=== PATIENT | male | born 1965 | race Caucasian/White ===

== ENCOUNTER 2018-02-18 07:57 | Emergency (ER) | payer BC ==
[2018-02-18] MEDS ORDERED: Adacel (T-DAP) 0.5 ML VIAL ONE (08:57)
[2018-02-18] MEDS ORDERED: Lidocaine 1% w/Epinephrine 1:100K 20 ML VIAL ONE (08:57)
[2018-02-18] MEDS ORDERED: Amoxicillin/Potassium Clav 875 MG TAB ONE (08:57)
--- NOTE | 2018-02-18 10:26 | RAD ---
TWO VIEWS OF THE RIGHT FOREARM: COMPARISON: None. HISTORY: Dog bite to right forearm with pain. FINDINGS: Two views of the right forearm show no evidence of acute fracture or dislocation. There is a lacerat ion in the distal aspect of the forearm. No radiopaque foreign body is seen. IMPRESSION: No evidence of acute osseous abnormality. POS: ELLA
[2018-02-18] MEDS ORDERED: Bacitracin Zinc 1 Packet ONE (10:59)
== END 2018-02-18 11:11 | disposition home or self-care (01) ==
LOC: ERS 07:57
DX: S51.811A Laceration without foreign body of right forearm, initial encounter (principal); I10 Essential (primary) hypertension; F17.210 Nicotine dependence, cigarettes, uncomplicated; Z79.899 Other long term (current) drug therapy; W55.41XA Bitten by pig, initial encounter
CPT/HCPCS: 12004; 90471; 90715; J2001

== ENCOUNTER 2018-10-17 07:06 | Outpatient (CLI) | payer BC ==
--- NOTE | 2018-10-03 08:54 | RAD ---
ROCHE SINUS: Date: 10-03-18 Provided Clinical History: History of metal in eye. MRI clearance. FINDINGS: There is a tiny radiodensity overlying the medial aspect of the left orbit. This may reflect an intra orbital metallic foreign body. No additional potential foreign body is evident. Paranasal sinuses lalo ear clear. IMPRESSION: Possible tiny metallic foreign body in the region of the left orbit. Consider correlation with CT or alternate imaging. POS: OFF
== END 2018-10-17 07:07 | disposition home or self-care (01) ==
LOC: BICMRI 07:06
PROVIDERS: ATTEND Specialist
DX: M51.16 Intervertebral disc disorders with radiculopathy, lumbar region (principal); Z53.9 Procedure and treatment not carried out, unspecified reason
CPT/HCPCS: 70210

== ENCOUNTER 2018-11-27 07:24 | Outpatient (CLI) | payer BC ==
--- NOTE | 2018-11-27 08:23 | CT ---
Exam: CT cervical spine without contrast HISTORY: Trauma. Pain. COMPARISON: None FINDINGS: No craniocervical dissociation. Appropriate alignment of the lateral masses of C1 and C2. Intact odon toid process Appropriate alignment of the facets. Soft tissue neck structures: No mass, lymphadenopathy or hematoma. No prevertebral soft tissue swelli ng. Upper mediastinum and lung apices: Unremarkable Central spinal canal: C2-C3: No significant central canal stenosis or neural foraminal narrowing. C3-C4: No significant central canal stenosis. Right neural foramen is patent. Mild left foraminal rui rowing due to uncovertebral hypertrophy. C4-C5: Broad-based disc bulge without significant central canal stenosis. Bilaterally, neural foramin a are patent. C5-C6: No significant central canal stenosis. Mild right foraminal narrowing due to uncovertebral hyp ertrophy. Left foramen is patent. C6-C7: No significant central canal stenosis. Mild right and severe left foraminal narrowing due to u ncovertebral hypertrophy. C7-T1: No significant central canal stenosis or neural foraminal narrowing. Vertebral bodies: Cervical spine vertebral body height is maintained. No fracture. IMPRESSION: 1. No fracture 2. Degenerative changes of cervical spine as above. There is severe left neural foramen narrowing at C6-C7. Transcribed Date/Time: 11/27/2018 8:36 AM
--- NOTE | 2018-11-27 08:27 | CT ---
Exam: Lumbar spine CT without contrast HISTORY: Lumbar radiculopathy. Radiation down the left leg. Back pain. Leg cramps. COMPARISON: none FINDINGS: No paraspinal or retroperitoneal mass, lymphadenopathy, or hematoma. Symmetric attenuation of psoas muscles. Visualized solid organs and alimentary canal are unremarkable. Visualized lung bases are unremarkable. There are 4 lumbar type vertebral bodies. Vertebral body height is maintained. No fracture. No spond ylolisthesis or spondylolysis. T11-T12: No significant central canal stenosis or neural foraminal narrowing. T12-L1: No significant central canal stenosis or neural foraminal narrowing. L1-L2: No significant central canal stenosis or neural foraminal narrowing. L2-L3: Generalized disc bulge results in mild central canal stenosis. Right neural foramen is moderat joyce narrowed. Left neural foramen is patent. L3-L4: Generalized disc bulge, ligament flavum thickening results in mild central canal stenosis. Mod erate right and mild to moderate left foraminal narrowing. L4-S1: Generalized disc bulge with a left subarticular osteophyte. There is mild central canal stenos is. Narrowing of both subarticular zones, left greater than right. Mass effect with partial obscuration traversing right S1 nerve root. Mass effect with near complete obscuration of traversing left S1 nerve root secondary to disc osteophyte complex. Moderate to severe bilateral neural foraminal narrowing. IMPRESSION: 1. No fracture. 2. Narrowing of both subarticular zones, left greater than right, at L4-S1. Mass effect with near com plete obscuration of the traversing left S1 nerve root. 3. Multilevel neural foraminal narrowing as described above. Transcribed Date/Time: 11/27/2018 8:39 AM
== END 2018-11-27 07:25 | disposition home or self-care (01) ==
LOC: BICCT 07:24
PROVIDERS: ATTEND Specialist
DX: M51.16 Intervertebral disc disorders with radiculopathy, lumbar region (principal); M47.22 Other spondylosis with radiculopathy, cervical region; M48.02 Spinal stenosis, cervical region; M48.07 Spinal stenosis, lumbosacral region; M48.061 Spinal stenosis, lumbar region without neurogenic claudication; M53.3 Sacrococcygeal disorders, not elsewhere classified
CPT/HCPCS: 72125; 72131